=== PATIENT | male | born 1995 | race African-American/Black ===

== ENCOUNTER 2019-08-27 03:11 | Emergency (ER) | payer MEDICAID, OTHER ==
[~2019-08-27] VITALS: Ht 177.8 cm; Wt 120.0 kg
[2019-08-27 04:13] LABS: CHLORIDE 108 mEq/L (98-107)
[2019-08-27] MEDS ORDERED: KETOROLAC 60MG/2ML VIAL IM ONE (04:15)
[2019-08-27 04:20] LABS: BASOPHILS % 0.4 % (0.0-2.0); HEMATOCRIT. 42.7 % (42.0-52.0); HEMOGLOBIN. 14.4 g/dL (14.0-18.0); LYMPHOCYTES % 31.5 % (20.0-50.0); MEAN CORPUSCULAR HEMOGLOBIN 28.4 pg (28.0-32.0); MONOCYTES % 7.4 % (2.0-8.0); NEUTROPHILS % 59.7 % (40.0-76.0); PLATELET 251 x1000/uL (130-400); RED BLOOD CELL COUNT 5.08 mill/uL (4.7-6.1); RED CELL DISTRIBUTION WIDTH 13.9 % (11.6-14.6)
[2019-08-27 04:46] VITALS: BP 150/72
== END 2019-08-27 05:12 | disposition home or self-care (01) ==
LOC: ER 03:11
DX: R07.89 Other chest pain (principal); I10 Essential (primary) hypertension
CPT/HCPCS: 36415; 71045; 80053; 83880; 84484; 85025; 85379; 93005; 96372; 99285; J1885